=== PATIENT | female | born 1990 | race Caucasian/White ===

== ENCOUNTER → 2023-05-23 09:34 | Outpatient (REF) | payer BC, SELFPAY ==
[2023-05-23 10:53] LABS: Beta HCG Quantitative 101.55 mIU/ml
== END ==
LOC: REG 09:34
PROVIDERS: ATTENDING PHYSICIAN Emergency Medicine; FAMILY PHYSICIAN Obstetrics & Gynecology
DX: O02.81 Inappropriate change in quantitative human chorionic gonadotropin (hCG) in early pregnancy (principal)
CPT/HCPCS: 84702